=== PATIENT | female | born 1990 | race American Indian/Alaskan Native ===

== ENCOUNTER 2016-08-19 19:48 | Emergency (ER) | payer MEDICAID ==
[2016-08-19 20:52] LABS: Basophils % (Auto) 0.3 % (0.0-1.8); Hematocrit 39.6 % (30.3-42.9); Hemoglobin 12.9 gm/dl (10.1-14.3); Mean Corpuscular HGB Conc 33 % (30-34); Mean Corpuscular Hemoglobin 29 pg (28-32); Mean Corpuscular Volume 89 fl (79-97); Platelet Count 259 K/mm3 (140-440); Red Blood Count 4.45 M/mm3 (3.65-5.03); Red Cell Distribution Width 13.2 % (13.2-15.2); White Blood Count 9.8 K/mm3 (4.5-11.0)
[2016-08-19 21:09] LABS: Anion Gap 16 mmol/L; BUN/Creatinine Ratio 11.66; Blood Urea Nitrogen 7 mg/dL (7-17); Calcium 9.4 mg/dL (8.4-10.2); Carbon Dioxide 25 mmol/L (22-30); Chloride 102.7 mmol/L (98-107); Glucose 89 mg/dL (65-100); Potassium 4.2 mmol/L (3.6-5.0); Sodium 139 mmol/L (137-145)
--- NOTE | 2016-08-19 22:41 | Emergency Department Report ---
HPI - General Chief Complaint: Upper Respiratory Infection Time Seen by Provider: 08/19/16 22:23 - HPI HPI: Patient is a 25-year-old female presents to the ED complaining trouble breathing times this morning. Patient states she woke up this morning with some difficulty breathing. Patient states she takes a deep breath she feels like her lungs are tight. She denies cough, fever, runny nose, ear pain, chest pain, dizziness, headache, vaginal bleeding, dysuria, any other symptoms ED Past Medical Hx - Past Medical History Previous Medical History?: Yes Hx Hypertension: No Hx Diabetes: No Hx Deep Vein Thrombosis: No Hx Renal Disease: No Hx Sickle Cell Disease: No Hx Seizures: No Hx Asthma: Yes Hx HIV: No - Surgical History Past Surgical History?: Yes Additional Surgical History: D&C x 2 (2008 & 2011) - Social History Smoking Status: Former Smoker Substance Use Type: Alcohol, Marijuana - Medications Home Medications: Home Medications Medication Instructions Recorded Confirmed Last Taken Type Vit #108/Iron/FA 1 tab PO DAILY 06/22/13 07/05/13 06/21/13 10:00 History [ One Tablet] 1 tab ALBUTEROL Inhaler [ProAir HFA 2 puff IH PRN #1 pump 08/19/16 Unknown Rx Inhaler] Nitrofurantoin Kings/M-Cryst 100 mg PO Q12HR #14 capsule 08/19/16 Unknown Rx [Macrobid CAP] Pnv95/Ferrous Fumarate/FA 1 each PO DAILY #40 tablet 08/19/16 Unknown Rx [ Formula Tablet] Progesterone,Micronized 200 mg PO DAILY #40 cap 08/19/16 Unknown Rx [Progesterone] ED Review of Systems ROS: Stated complaint: SOB/POSS DEHYDRATION Other details as noted in HPI Constitutional: denies: chills, fever Eyes: denies: eye pain, eye discharge, vision change ENT: denies: ear pain, throat pain, dental pain, hearing loss Respiratory: SOB at rest. denies: cough, shortness of breath, wheezing Cardiovascular: denies: chest pain, palpitations Endocrine: no symptoms reported Gastrointestinal: denies: abdominal pain, nausea, diarrhea Genitourinary: denies: urgency, dysuria, discharge Musculoskeletal: denies: back pain, joint swelling, arthralgia Skin: denies: rash, lesions Neurological: denies: headache, weakness, paresthesias Psychiatric: denies: anxiety, depression Hematological/Lymphatic: denies: easy bleeding, easy bruising Physical Exam - Physical Exam Vital Signs: Vital Signs 08/19/16 20:22 Temperature 98.2 F Pulse Rate 99 H Respiratory 18 Rate Blood Pressure 112/71 O2 Sat by Pulse 100 Oximetry Physical Exam: GENERAL: Alert and oriented x3, no apparent distress, Normal Gait, atraumatic. HEAD: Head is normocephalic and a-traumatic. EYES: Extra ocular muscles are intact. Pupils are equal, round, and reactive to light and accommodation. EARS: symetrical, atraumatic, non tender, ear canal clear and moderate cerumen, tympanic membrance non inflamed. gross auditory nml bilaterally. NOSE: Nose symetrical, Nontender,Nares appeared normal. MOUTH:Mouth is well hydrated and without lesions. Tonsils nonerythematous or swollen, Uvula midline, Tongue not elevated. Mucous membranes are moist. Posterior pharynx clear, no exudate or lesions. Patent airways. NECK: Supple. Non edematous, No carotid bruits. No lymphadenopathy or thyromegaly. No C-spine tenderness LUNGS: Symetrical with respiration, No wheezing, no rales or crackles, CTAB. HEART: S1, S2 present, regular rate and rhythm without murmur, no rubs, no gallops. Non tender to palpation NEUROLOGIC: The patient is cooperative with no focal neurologic deficits. Cranial nerves II through XII are grossly intact. Normal speech. SKIN: Warm and dry, No lesions, No ulceration or induration present. ED Course Vital Signs 08/19/16 20:22 Temperature 98.2 F Pulse Rate 99 H Respiratory 18 Rate Blood Pressure 112/71 O2 Sat by Pulse 100 Oximetry ED Medical Decision Making - Lab Data Result diagrams: 08/19/16 20:40 08/19/16 20:40 - Medical Decision Making 25-year-old female presents with urinary tract infection and positive ED course: CBC, CMP, urinalysis, serum quantitative test ordered CBC and BMP within normal limits, urine test positive, urinalysis positive for bacteria Discussed all findings the patient. Patient states she has a history of 3 first trimester miscarriages and one similar issues will be considered high risk despite the OB doctor. Discussed patient appointment with the GUEST ADVISOR is needed as soon as possible. The patient is alert and oriented 3 she is in no acute distress Discussed the patient we'll give albuterol inhaler to be used as needed for asthma flareups Vital signs are normal she is in no acute distress she took news well and states she will follow up Critical care attestation.: If time is entered above; I have spent that time in minutes in the direct care of this critically ill patient, excluding procedure time. ED Disposition Clinical Impression: Positive blood test UTI (urinary tract infection) Qualifiers: Urinary tract infection type: acute cystitis Hematuria presence: with hematuria Qualified Code(s): N30.01 - Acute cystitis with hematuria Disposition: TO HOME OR SELFCARE Is pt being admited?: No Does the pt Need Aspirin: No Condition: Stable Instructions: Urinary Tract Infection in Women (ED), Morning Sickness (ED), (ED) Additional Instructions: Follow-up the GUEST ADVISOR as referred. Take your medication as discussed. Increase fluid intake Decreased physical activity. Use inhaler as discussed only when needed Prescriptions: ALBUTEROL Inhaler [ProAir HFA Inhaler] 2 puff IH PRN #1 pump Nitrofurantoin Kings/M-Cryst [Macrobid CAP] 100 mg PO Q12HR #14 capsule Pnv95/Ferrous Fumarate/FA [ Formula Tablet] 1 each PO DAILY #40 tablet Progesterone,Micronized [Progesterone] 200 mg PO DAILY #40 cap Referrals: IGOR APODACA MD [Primary Care Provider] - 3-5 Days DWAIN KIRBY MD [Referring] - 3-5 Days EDILIA CARREON MD [Referring] - 3-5 Days EVIN CARREON MD [Referring] - 3-5 Days LAMIN CARREON MD [Staff Physician] - 3-5 Days KESHAV MCGARRY MD [Staff Physician] - 3-5 Days Forms: Accompanied Note, Work/School Release Form(ED) Time of Disposition: 23:32
[2016-08-19 23:04] LABS: Bacteria,Urine 2+ /HPF (Negative); Bilirubin,Urine NEG (Negative); Blood,Urine NEG (Negative); Ketones,Urine NEG (Negative); Leukocyte Esterase,Urine TR (Negative); Mucus,Urine 3+ /HPF; Nitrite,Urine POS (Negative); Protein,Urine <15 mg/dL mg/dL (Negative); Urobilinogen,Urine < 2.0 mg/dL (<2.0)
[2016-08-20 00:01] VITALS: BP 110/79
== END 2016-08-20 00:01 | disposition home or self-care (01) ==
LOC: ED 19:48
DX: O23.41 Unspecified infection of urinary tract in pregnancy, first trimester (principal); Z3A.00 Weeks of gestation of pregnancy not specified; N30.01 Acute cystitis with hematuria
CPT/HCPCS: 36415; 80048; 81001; 81025; 84702; 85025; 99283